=== PATIENT | male | born 1950 | race Caucasian/White ===

== ENCOUNTER → 2017-10-03 | Outpatient (CLI) | payer OTHER ==
[~2017-10-03] MED LIST: CRUTCH3 USE; CYCL10 PO; ETAN50I SC; HYDACE5 PO; INSR10I SC; INSULANI SC; METTREX2.5 PO; ONDA4ODT MM; OXAP600 PO; RXONDA4ODT MM; TRAM50 PO; [UNRECOGNIZED DRUG - OTHER]
[2017-10-03 14:11] LABS: BASOPHILS ABSOLUTE AUTO 0.06 K/mm3 (0.00-0.23); BASOPHILS PERCENT AUTO 1 % (0-2); EOSINOPHILS ABSOLUTE AUTO 0.04 K/mm3 (0.00-0.68); EOSINOPHILS PERCENT AUTO 0 % (0-6); Hematocrit 50.6 % (37.0-53.0); Hemoglobin 18.2 g/dL (13.5-17.5); IMMATURE GRAN ABSOLUTE AUTO 0.04 K/mm3 (0.00-0.10); IMMATURE GRAN PERCENT AUTO 0 % (0-1); LYMPHOCYTES ABSOLUTE AUTO 0.85 K/mm3 (0.84-5.20); LYMPHOCYTES PERCENT AUTO 8 % (21-46); MONOCYTES PERCENT AUTO 7 % (4-13); Mean Corpuscular HGB 31.8 pg (26.0-34.0); Mean Corpuscular Volume 89 fL (80-100); Mean Platelet Volume 10.6 fL (9.1-12.4); NEUTROPHILS PERCENT AUTO 83 % (41-73); Platelet Count 228 K/mm3 (150-400); RDW Coefficient Variation 12.5 % (11.7-14.2); RDW Standard Deviation 40.5 fL (35.1-46.3); Red Blood Cell Count 5.72 M/mm3 (4.30-5.90); White Blood Cell Count 10.79 K/mm3 (4.00-11.30)
[2017-10-03 14:24] LABS: Albumin, Blood 4.1 g/dL (3.4-5.0); Albumin/Globulin Ratio 0.9 (0.8-1.8); Bilirubin, Total 1.4 mg/dL (0.1-1.0); Bun/Creatinine Ratio 11.9 (12.0-20.0); Calcium, Blood 9.8 mg/dL (8.5-10.1); Creatinine, Blood 2.35 mg/dL (0.60-1.20); Globulin, Blood 4.4 g/dL (2.2-4.0); Potassium, Blood 3.9 mmol/L (3.5-5.5); Total Protein, Blood 8.5 g/dL (6.4-8.2)
== END | disposition home or self-care (01) ==
LOC: LAB EV 14:07
PROVIDERS: Physician Assistant Medical
DX: R53.83 Other fatigue (principal)
CPT/HCPCS: 80053; 85025

== ENCOUNTER → 2017-10-04 | Outpatient (CLI) | payer OTHER ==
[2017-10-04 10:22] LABS: Albumin, Blood 3.7 g/dL (3.4-5.0); Albumin/Globulin Ratio 0.9 (0.8-1.8); Bilirubin, Total 1.2 mg/dL (0.1-1.0); Bun/Creatinine Ratio 13.9 (12.0-20.0); Calcium, Blood 9.3 mg/dL (8.5-10.1); Creatinine, Blood 1.66 mg/dL (0.60-1.20); Globulin, Blood 3.9 g/dL (2.2-4.0); Potassium, Blood 3.8 mmol/L (3.5-5.5); Total Protein, Blood 7.6 g/dL (6.4-8.2)
== END ==
LOC: LAB 10:05
PROVIDERS: Physician Assistant Medical
DX: R94.4 Abnormal results of kidney function studies (principal)
CPT/HCPCS: 80053

== ENCOUNTER → 2019-05-22 | Outpatient (CLI) | payer OTHER | END | disposition home or self-care (01) | LOC: LAB SHORT 14:37 → LAB 14:37 | DX: M25.561 Pain in right knee (principal); M25.469 Effusion, unspecified knee; M06.9 Rheumatoid arthritis, unspecified | CPT/HCPCS: 87070; 87075; 87205 ==

== ENCOUNTER 2019-07-26 09:28 | Day surgery (SDC) | payer OTHER ==
[~2019-07-26] VITALS: Ht 188 cm; Wt 109.0 kg
[~2019-07-26 09:28] MED LIST changes: +ACTEMRA AC162 MG/0.9 SC; +Norco 10-325 T1 EACH PO; +ZESTORETIC 20-251 EA PO
--- NOTE | 2019-07-26 18:45 | NUR ---
SHIFT SUMMARY PATIENT TOLERATING PO. STATES PAIN 5/10 WITH IV AND PO PAIN MEDS. CIRC CHECKS TO RLE WNL. PATIENT STATES LE 'NOT QUITE NORMAL,' BUT MOVES WELL. UP TO STAND AT BEDSIDE EARLIER PER PATIENT REQUEST, BORE WEIGHT WELL. VSS. AT BEDSIDE.
[2019-07-27 03:49] LABS: BASOPHILS ABSOLUTE AUTO 0.02 K/mm3 (0.00-0.23); BASOPHILS PERCENT AUTO 0 % (0-2); EOSINOPHILS ABSOLUTE AUTO 0.04 K/mm3 (0.00-0.68); EOSINOPHILS PERCENT AUTO 0 % (0-6); Hematocrit 33.3 % (37.0-53.0); Hemoglobin 10.9 g/dL (13.5-17.5); IMMATURE GRAN ABSOLUTE AUTO 0.03 K/mm3 (0.00-0.10); IMMATURE GRAN PERCENT AUTO 0 % (0-1); LYMPHOCYTES ABSOLUTE AUTO 1.05 K/mm3 (0.84-5.20); LYMPHOCYTES PERCENT AUTO 10 % (21-46); MONOCYTES ABSOLUTE AUTO 1.08 K/mm3 (0.16-1.47); MONOCYTES PERCENT AUTO 10 % (4-13); Mean Corpuscular HGB 29.7 pg (26.0-34.0); Mean Corpuscular HGB Conc 32.7 g/dL (31.5-36.5); Mean Corpuscular Volume 91 fL (80-100); Mean Platelet Volume 9.5 fL (9.1-12.4); NEUTROPHILS ABSOLUTE AUTO 8.41 K/mm3 (1.96-9.15); NEUTROPHILS PERCENT AUTO 79 % (41-73); Platelet Count 307 K/mm3 (150-400); RDW Coefficient Variation 12.5 % (11.7-14.2); RDW Standard Deviation 41.6 fL (35.1-46.3); Red Blood Cell Count 3.67 M/mm3 (4.30-5.90); White Blood Cell Count 10.63 K/mm3 (4.00-11.30)
[2019-07-27 04:04] LABS: Anion Gap 6 mmol/L (6-16); Blood Urea Nitrogen 23 mg/dL (8-24); Bun/Creatinine Ratio 20.4 (12.0-20.0); CO2, Blood 26 mmol/L (21-32); Calcium, Blood 8.7 mg/dL (8.5-10.1); Chloride, Blood 105 mmol/L (98-108); Creatinine, Blood 1.13 mg/dL (0.60-1.20); Glomerular Filtration Rate >60 (60-); Glucose, Blood 122 mg/dL (70-99); Sodium, Blood 137 mmol/L (136-145)
--- NOTE | 2019-07-27 05:04 | NUR ---
SHIFT SUMMARY: JAMES IS POD1 FOR A RIGHT TKA WITH DR. ALVAREZ. HE IS A&OX4. HE HAS COMPLAINED OF 4-5/10 PAIN IN HIS LEFT KNEE FOR WHICH HE REPORTS ORAL PAIN MEDICATION HAS BEEN EFFECTIVE. HE REPORTS THAT SENSATION IS INTACT IN HIS RIGHT LEG. HE IS URINATING WITHOUT DIFFICULTY AND TOLERATING PO INTAKE WELL. NANCY, POLAR CELI AND PAS IN PLACE. IV PATENT TO RIGHT FOREARM, SALINE LOCKED. HE HAS RESTED INTERMITTENTLY FOR THE LAST HALF OF THE SHIFT. HE IS ABLE TO MAKE HIS NEEDS KNOWN. HE IS LYING IN BED WITH HIS CALL LIGHT IN REACH.
--- NOTE | 2019-07-27 08:55 | NUR ---
PT WORKING WITH THERAPY.
[2019-07-27] MEDS ORDERED: OXYC5 PO (14:01)
[2019-07-27] MEDS ORDERED: ACET500 PO (14:08)
--- NOTE | 2019-07-27 14:32 | NUR ---
THERAPY HERE TO WORK WITH PT.
--- NOTE | 2019-07-27 15:00 | NUR ---
DR SNYDER BEEN TO SEE PT EARLIER. PT CLEARED BY THERAPY TO GO HOME. PT VOIDING. PAIN CONTROLLED ON PO PAIN MEDICATION. PT FAMILY REPORTS HAVING APPR EQUIP AT HOME INCLUDING WALKER. PT TO BE SENT WITH ICE MACHINE AND DRESSING SUPPLIES.
--- NOTE | 2019-07-27 16:03 | NUR ---
DISCHARGE: PT EATING AND DRINKING. PASSING GAS, VOIDING. PT CLEARED BY THERAPY TO GO HOME. PT SEEN BY DR SNYDER WHO REPORTS MAY CONT WITH DISCHARGE TODAY. PT FAMILY REPORTS HAVING WALKER AT HOME. PT/FAMILY REPORTS UNDERSTANDING OF DISCHARGE INSTRUCTIONS INCLUDING DRESSING CHANGE AND ICE MACHINE. PT SENT WITH BELONGINGS, ICE MACHINE, SCRIPT AND OTHER PAPERWORK. PT ASSISTED TO CAR BY W/C WITH GIVING PT RIDE HOME.
--- NOTE | 2019-07-29 08:00 | NUR ---
07/29/19 0800 Eryn Ayers VERIFICATIONS: EDIT CHART.
== END 2019-07-27 16:06 | disposition home or self-care (01) ==
LOC: ORSCMMR 09:28 → ORD 11:30 → ORSCMMR 11:30 → SURS 15:12 → ORSCMMR 07-27 16:06
PROVIDERS: Orthopaedic Surgery
PROC: 0SRC0J9 Replacement of Right Knee Joint with Synthetic Substitute, Cemented, Open Approach (ICD-10-PCS; principal; 2019-07-26 11:30)
DX: M17.11 Unilateral primary osteoarthritis, right knee (principal); I10 Essential (primary) hypertension; Z79.899 Other long term (current) drug therapy
CPT/HCPCS: 36415; 73560-RT; 80048; 83735; 85025; 87071; 87075; 87205; 88300; 97110; 97116; 97162; 97530; C1713; C1776; J0171; J0690; J0735; J1100; J1170; J1885; J2250; J2405; J2704; J2795; J3010; J7120

== ENCOUNTER 2021-11-20 12:50 | Inpatient (IN) | payer OTHER ==
[~2021-11-20] VITALS: Ht 195.6 cm; Wt 85.0 kg
[~2021-11-20 12:50] MED LIST changes: +ACET500 PO; +OXYC5 PO
[2021-11-20 13:25] LABS: Calcium, Ionized (POC) 1.02 mmol/L (1.10-1.46); Chloride (POC) 99 mmol/L (98-108); Creatinine (POC) 4.9 mg/dL (0.8-1.3); Glucose (ISTAT POC) 99 mg/dL (70-99); Hemoglobin (POC) 14.3 g/dL (13.5-17.5); Potassium (POC) 5.4 mmol/L (3.5-5.5); Sodium (POC) 131 mmol/L (135-148); Total CO2 (POC) 19 mmol/L (21-32)
[2021-11-20 13:31] LABS: Hematocrit 40.6 % (37.0-53.0); Hemoglobin 13.2 g/dL (13.5-17.5); Mean Corpuscular HGB 26.8 pg (26.0-34.0); Mean Corpuscular HGB Conc 32.5 g/dL (31.5-36.5); Mean Corpuscular Volume 83 fL (80-100); Mean Platelet Volume 10.2 fL (9.1-12.4); Platelet Count 262 K/mm3 (150-400); RDW Coefficient Variation 14.6 % (11.7-14.2); RDW Standard Deviation 43.8 fL (35.1-46.3); Red Blood Cell Count 4.92 M/mm3 (4.30-5.90); White Blood Cell Count 16.02 K/mm3 (4.00-11.30)
[2021-11-20 13:45] LABS: Base Excess Venous -7.1 mmol/L; Bicarbonate Venous 19.5 mmol/L (24.0-30.0); International Normalized Ratio 1.23; PCO2 Venous 32.8 mmHg (38-42); PO2 Venous 141 mmHg (38-42); Prothrombin Time Results 12.7 Sec (9.7-11.5); pH Blood Venous 7.36 (7.34-7.37)
[2021-11-20 13:52] LABS: BAND PERCENT MAN 6 % (0-8); BASOPHILS PERCENT MAN 0 % (0-2); EOSINOPHILS PERCENT MAN 0 % (0-6); LYMPHOCYTES ABSOLUTE MAN 0.16 K/mm3 (0.84-5.20); LYMPHOCYTES PERCENT MAN 1 % (21-46); METAMYELOCYTE ABSOLUTE MAN 0.16 K/mm3 (0.00-0.00); METAMYELOCYTE PERCENT MAN 1 % (0-0); MONOCYTES ABSOLUTE MAN 0.64 K/mm3 (0.16-1.47); MONOCYTES PERCENT MAN 4 % (4-13); NEUTROPHILS ABSOLUTE MAN 15.05 K/mm3 (1.96-9.15); SEG NEUTROPHILS PERCENT MAN 88 % (41-73); TOTAL CELLS COUNTED 100
[2021-11-20 14:03] LABS: Albumin, Blood 1.3 g/dL (3.4-5.0); Albumin/Globulin Ratio 0.2 (0.8-1.8); Bilirubin, Total 1.5 mg/dL (0.1-1.0); Bun/Creatinine Ratio 35.6 (12.0-20.0); Calcium, Blood 8.7 mg/dL (8.5-10.1); Creatinine, Blood 4.16 mg/dL (0.60-1.20); Globulin, Blood 5.4 g/dL (2.2-4.0); Potassium, Blood 5.9 mmol/L (3.5-5.5); Thyroid Stimulating Hormone 1.6 uIU/mL (0.360-4.800); Total Protein, Blood 6.7 g/dL (6.4-8.2)
[2021-11-20 14:24] LABS: Source, Urine Foley catheter
[2021-11-20 14:29] LABS: Appearance, Urine Cloudy (Clear); Bilirubin, Urine Neg (Neg); Blood, Urine 5+ (Neg); Color, Urine Brown (P-Yellow); Glucose Qualitative, Urine Neg (Neg); Ketones, Urine Neg (Neg); Leukocyte Esterase, Urine 3+ (Neg); Nitrite, Urine Neg (Neg); Protein, Urine 2+ (Neg); Specific Gravity, Urine 1.005 (1.003-1.022); Urobilinogen, Urine 1+ (Normal)
[2021-11-20 14:36] LABS: White Blood Cells, Urine TNTC /hpf (0-5)
[2021-11-20 14:38] LABS: Bacteria Many /hpf; Red Blood Cells, Urine TNTC /hpf (0-2); Squamous Epithelial Cells Not Seen /hpf (Few)
[2021-11-20] MEDS ORDERED: Norco 10-325 T1 EACH PO (17:19)
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
[2021-11-21 04:28] LABS: Hematocrit 33.2 % (37.0-53.0); Hemoglobin 10.7 g/dL (13.5-17.5); Mean Corpuscular HGB 26.7 pg (26.0-34.0); Mean Corpuscular HGB Conc 32.2 g/dL (31.5-36.5); Mean Corpuscular Volume 83 fL (80-100); Mean Platelet Volume 10.3 fL (9.1-12.4); Platelet Count 212 K/mm3 (150-400); RDW Coefficient Variation 14.7 % (11.7-14.2); RDW Standard Deviation 44.6 fL (35.1-46.3); Red Blood Cell Count 4.01 M/mm3 (4.30-5.90); White Blood Cell Count 10.78 K/mm3 (4.00-11.30)
[2021-11-21 05:11] LABS: Alanine Aminotransfer (ALT/SGP 10 U/L (12-78); Albumin, Blood 1.1 g/dL (3.4-5.0); Albumin/Globulin Ratio 0.3 (0.8-1.8); Alk Phos 110 U/L (50-136); Anion Gap 9 mmol/L (6-16); Aspartate Aminotrans (AST/SGOT 23 U/L (12-37); Bilirubin, Total 1.1 mg/dL (0.1-1.0); Blood Urea Nitrogen 138 mg/dL (8-24); Bun/Creatinine Ratio 43.8 (12.0-20.0); CO2, Blood 21 mmol/L (21-32); Calcium, Blood 8.2 mg/dL (8.5-10.1); Chloride, Blood 108 mmol/L (98-108); Creatinine, Blood 3.15 mg/dL (0.60-1.20); Globulin, Blood 4.3 g/dL (2.2-4.0); Glomerular Filtration Rate 20 (60-); Glucose, Blood 100 mg/dL (70-99); Magnesium, Blood 2.4 mg/dL (1.6-2.4); Potassium, Blood 4.5 mmol/L (3.5-5.5); Sodium, Blood 138 mmol/L (136-145); Total Protein, Blood 5.4 g/dL (6.4-8.2)
[2021-11-21 05:18] LABS: C-REACTIVE PROTEIN, EXT RANGE >19.000 mg/dL (0.000-0.300)
--- NOTE | 2021-11-21 06:21 | NUR ---
SHIFT SUMMARY ASSUMED CARE OF PT AT 1900. PT IS A/OX3 WITH TIMES OF CONFUSION. HEART SOUNDS REGULAR. LUNG SOUNDS HAVE DIMINISHED. PT HAS A WET COUGH, NON PRODUCTIVE. PT URINE IS DARK TEA COLORED. PT HAS VARIES WOUNDS ALL OVER. DRESSINGS C/D/I. PT IS VERY PAINFUL. HOSPITALIST WAS CALLED AND IV PAIN MEDICATIONS ORDRED. PT WAS ABLE TO SLEEP AND STOPPED CRYING OUT AFTER THIS. PT IS MORE SOLULENT THIS AM BUT STILL RESPONSIVE. BLOOD CULTURES CAME BACK POSITIVE, MULTIPLE ATTEMPTS TO CALL HOSPITALIST WERE MADE. PHARMACIST STATED THAT PT MIGHT NEED VANCO AND THE DAYSHIFT DOCTORS WILL BE ABLE TO ORDER IT.
--- NOTE | 2021-11-21 16:45 | NUR ---
SHIFT SUMMARY Pt is a/o to himself today. He is more fatigued and seems more confused. He is still very painful with any movement or even the anticipation of movement. Dr Orourke increased the fentanyl patch as reflected on the emar and it does seem to be effective. He completed the amio gtt and was changed to PO this afternoon per Dr Orourke. He is in NSR in the 80's. He is pale and weak and needs at least 2 people to turn and reposition him. He had another bed bath today. His peterson is patent with dark tea colored urine. The has been at the bedside this afternoon. Palliative care was notified of the consult that was placed for him. His dressings were changed and his wounds are unchanged from yesterday. He is floated on pillows. He has his call light in reach and bed alarm on for safety.
--- NOTE | 2021-11-21 21:40 | NUR ---
PT SLEEPING, WAKES TO MOVEMENT. PT CRYING OUT STATING IT IS PAINFUL TO MOVE, ATTEMPTED TO REASURE. PT REPOSITIONED OFF OF BACK. PT WILLING TO TAKE EVENING MEDICATIONS WHOLE IN APPLESAUCE. PT CONVERED TO A-FIB AFTER MOVEMENT, HR IN 140-150'S. DR. ALEX GIANG INFORMED. ORDER RECEIVED FOR PO METROPROLOL. INSTRUCTED TO CALL AGAIN IF HR DOES NOT DECREASE.
--- NOTE | 2021-11-22 01:15 | NUR ---
PT BP DECREASED INTO 80'S SYSTOLICALLY AFTER METOPROLOL. DR. JOHNSON INFORMED, RECEIVED ORDER FOR 500 ML BOLUS. BOLUS GIVEN, SBP DECREASED FURTHER TO 79. MIDRODINE PO GIVEN PER ORDERS AND ALBUMIN IV STARTED. DR. CASTRO INFROMED OF PT'S BP AFTER FIRST BOLUS. RECEIVED ORDERS FOR SECOND 500 ML BOLUS. BOLUS HANDING AFTER SECOND IV STARTED BY RODNEY CHARGE NURSE. WILL CONTINUE TO MONITOR.
[2021-11-22 04:08] LABS: Hematocrit 28.5 % (37.0-53.0); Hemoglobin 9.3 g/dL (13.5-17.5); Mean Corpuscular HGB 27.3 pg (26.0-34.0); Mean Corpuscular HGB Conc 32.6 g/dL (31.5-36.5); Mean Corpuscular Volume 84 fL (80-100); Mean Platelet Volume 9.9 fL (9.1-12.4); Platelet Count 165 K/mm3 (150-400); RDW Standard Deviation 45.9 fL (35.1-46.3); Red Blood Cell Count 3.41 M/mm3 (4.30-5.90); White Blood Cell Count 7.93 K/mm3 (4.00-11.30)
[2021-11-22 04:32] LABS: Alanine Aminotransfer (ALT/SGP 9 U/L (12-78); Albumin, Blood 1.5 g/dL (3.4-5.0); Albumin/Globulin Ratio 0.4 (0.8-1.8); Alk Phos 87 U/L (50-136); Anion Gap 7 mmol/L (6-16); Aspartate Aminotrans (AST/SGOT 20 U/L (12-37); Bilirubin, Total 0.9 mg/dL (0.1-1.0); Blood Urea Nitrogen 108 mg/dL (8-24); Bun/Creatinine Ratio 50.5 (12.0-20.0); CO2, Blood 21 mmol/L (21-32); Chloride, Blood 118 mmol/L (98-108); Creatinine, Blood 2.14 mg/dL (0.60-1.20); Globulin, Blood 3.7 g/dL (2.2-4.0); Glomerular Filtration Rate 31 (60-); Glucose, Blood 96 mg/dL (70-99); Potassium, Blood 3.9 mmol/L (3.5-5.5); Sodium, Blood 146 mmol/L (136-145); Total Protein, Blood 5.2 g/dL (6.4-8.2); Vancomycin, Random 14.4 ug/mL
--- NOTE | 2021-11-22 06:56 | NUR ---
AFTER AMNIODERONE DRIP STARTED PT'S HR DECREASED SLIGHTLY INTO 120'S-130'S. BP REMAINS SOFT WITH MAP >65. THIS A.M. HR INCREASED BACK TO 140'S, MAP < 60. DR. ENCISO INFROMED. ORDERS RECEIVED FOR BOLUS OF AMNIODERONE. MEDICATION PENDING ARRIVAL FROM PHARMACY.
--- NOTE | 2021-11-22 08:39 | NUR ---
AMNIO DECREASED TO 16.7ML/HR PER PROTOCOL AT 0800.
--- NOTE | 2021-11-22 14:58 | NUR ---
Patient is lying in bed and alert. Patient speaks but in short sentences and has a standard "I don't know" answer to many of the questions. Bairon also states, "I can't pull up my thoughts." This is clearly bothersome to the patient. He was very clear in stating that he would like a prayer said for him, which I gladly provided. I also provided a calming presence and gentle supportive licensed mental health counselor. Pt responds well and shows signs of being encouraged and having an increase in hope. I will continue to remain available to patient and family.
--- NOTE | 2021-11-22 17:54 | NUR ---
CARE TODAY PROVIDED BY STUDENT NURSE MARTINA HARLEY REVIEWED BY THIS RN.
--- NOTE | 2021-11-22 18:49 | NUR ---
SHIFT SUMMARY; ASSUMED CARE AT 0700. SLEEPING BUT AWAKES TO VERBAL STIMULI. ANSWERS MINIMAL QUESTIONS DURING FIRST PART OF SHIFT, APPEARS LETHARGIC, EXTREMTIES WEAK X4. MULTIPLE PRESSURE ULCERS. MEPILEX IN PLACE ON COCCYX, BILATERAL ARMS AND LEGS. PHOTOS IN CHART. EVALUATED BY SPEECH TODAY, ASSISTED WITH MEALS. MORE ALERT IN AFTERNOON, FAMILY AT BEDSIDE. MOANS IN PAIN WITH ANY TOUCH. REPOSITIONED Q2 DURING SHIFT WITH MAX ASSIST. PAIN CONTROL VIA EMAR. BAZZI IN PLACE DRAINING TEA COLORED URINE. HEART RATE 130'S DURING SHIFT IN AFIB. DIGOXIN GIVEN PER ORDERS, DISCUSSED CONTINUED HIGH HEART RATE VIA TELEPHONE CALL TO DR. MCDOWELL IN AFTERNOON. VERBAL ORDER FOR REPEAT DOSE OF DIG IV. BLOOD PRESSURE STABLE DURING SHIFT. WILL CONTINUE TO MONITOR AND TREAT UNTIL CHANGE OF SHIFT.
--- NOTE | 2021-11-22 19:06 | NUR ---
PT WAS HARD TO AROUSE THIS MORNING, HE MUMBLED IN PAIN AND WAS NOT ALERT AND ORIENTED. HE IS ON NS AND AN AMIODARONE DRIP, HR SUSTAINED IN THE 130-140. DOCTOR WAS CALLED AND DIGOXIN IV WAS STARTED IN THE EVENING. HE BEGAN TO WAKE UP AROUND LUNCH AND HAS BEEN A&OX4. SPEECH PUT HIM ON PUREE DIET AND THIN LIQUIDS. PAIN PERSISTS WITH FENTANYL IV, TAKES MULTIPLE PEOPLE TO REPOSITION. FAMILY IS WORKING WITH PALLIATIVE TO FIND A PLAN MOVING FORWARD.
[2021-11-23 03:58] LABS: Hematocrit 29.9 % (37.0-53.0); Hemoglobin 9.6 g/dL (13.5-17.5); Mean Corpuscular HGB 26.9 pg (26.0-34.0); Mean Corpuscular HGB Conc 32.1 g/dL (31.5-36.5); Mean Corpuscular Volume 84 fL (80-100); Mean Platelet Volume 9.9 fL (9.1-12.4); Platelet Count 166 K/mm3 (150-400); RDW Standard Deviation 46.3 fL (35.1-46.3); Red Blood Cell Count 3.57 M/mm3 (4.30-5.90); White Blood Cell Count 9.35 K/mm3 (4.00-11.30)
--- NOTE | 2021-11-23 04:10 | NUR ---
AFIB TO SR PT CONVERTED FROM AFIB TO NSR AT APPROX 0345. HR 90'S
[2021-11-23 04:19] LABS: Alanine Aminotransfer (ALT/SGP 9 U/L (12-78); Albumin, Blood 1.5 g/dL (3.4-5.0); Albumin/Globulin Ratio 0.4 (0.8-1.8); Alk Phos 82 U/L (50-136); Anion Gap 7 mmol/L (6-16); Aspartate Aminotrans (AST/SGOT 35 U/L (12-37); Bilirubin, Total 1.1 mg/dL (0.1-1.0); Blood Urea Nitrogen 77 mg/dL (8-24); Bun/Creatinine Ratio 49.7 (12.0-20.0); CO2, Blood 20 mmol/L (21-32); Calcium, Blood 8.2 mg/dL (8.5-10.1); Chloride, Blood 119 mmol/L (98-108); Creatinine, Blood 1.55 mg/dL (0.60-1.20); Globulin, Blood 3.9 g/dL (2.2-4.0); Glomerular Filtration Rate 45 (60-); Glucose, Blood 137 mg/dL (70-99); Magnesium, Blood 1.9 mg/dL (1.6-2.4); Potassium, Blood 3.7 mmol/L (3.5-5.5); Sodium, Blood 146 mmol/L (136-145); Total Protein, Blood 5.4 g/dL (6.4-8.2)
--- NOTE | 2021-11-23 06:43 | NUR ---
SHIFT SUMMARY PT ALERT, ORIENTED AT START OF SHIFT. AT END OF SHIFT, PT BEGAN MAKING COMMENTS SUCH , "WHY IS THIS LITTLE BOY BY MY BED" AND "CAN YOU TAKE OFF HER SHOE?" WHEN ASKED WHOSE SHOE, PT REPLIED, "MY DAUGHTERS". STATED HIS DAUGHTER, MARICRUZ WAS AGE 5 OR 6. SP02>92% ON 2L NC. TELEMETRY SHOWED AFIB, HR 130'S AVG. BEGAN TO INCREASE TO 140'S-150'S, CALL PLACED TO MD GUALLPA. MD GUALLPA WITH ORDERS FOR 1X IV LOPRESSOR PUSH. HR BEGAN TO DECREASE, THEN PT CONVERTED TO NSR AT AROUND 0345. AMIO GTT OFF THIS SHIFT. BAZZI CATHETER DRAINING TO GRAVITY. NO BM THIS SHIFT. PT REPOSITIONED TWICE THIS SHIFT, DID NOT ALLOW OTHER TIMES. IV PAIN MEDICATION GIVEN PER EMAR. NS INFUSED PER EMAR. CALL LIGHT IN REACH.
--- NOTE | 2021-11-23 18:23 | NUR ---
ASSUMED CARE OF PT AT 0700 FROM KAELYN L[place]ON. SEE SHIFT ASSESSMENT. SPEECH THERAPY IN TO SEE PT TODAY AND UPDATE FEEDING PLAN. [employer] DEVELOPER CONSULTED AND ASSESSED THE PT'S WOUNDS, ORDERS PLACED FOR SURGICAL CONSULT FOR POSSIBLE DEBRIDEMENT OF SEVERAL WOUNDS. PT'S AT BEDSIDE MOST OF THE DAY. BED BATH PROVIDED ALONG WITH WOUND CARE. PT TO IMAGAING FOR HEAD CT R/T MENATION CHANGES, SEE RESULTS IN CHART. PT APPEARS TO BE RESTING COMFORTABLY AT THIS TIME, EYES CLOSED, RESPIRATIONS EVEN AND UNLABORED. WILL CONTINUE TO MONITOR AND GIVE REPORT TO NOC SHIFT RN.
--- NOTE | 2021-11-24 06:15 | NUR ---
SHIFT SUMMARY PT ALERT, HALLUCINATING. PT STATES, "HELP, A SNAKE BIT MY LEFT FOOT". PT STATES, "PLEASE TAKE FRANCIE SO I CAN SLEEP". SEE SHIFT ASSESSMENT. BAZZI CATHETER DRAINING SEDIMENT DARK URINE TO GRAVITY. NO BM THIS SHIFT. PAIN MEDICATION GIVEN PER MAR FOR UNCONTROLLED GENERALIZED RA PAIN. CALL LIGHT IN REACH .
[2021-11-24 07:38] LABS: Hemoglobin 8.8 g/dL (13.5-17.5); Mean Corpuscular HGB 27.1 pg (26.0-34.0); Mean Corpuscular HGB Conc 31.4 g/dL (31.5-36.5); Mean Corpuscular Volume 86 fL (80-100); Mean Platelet Volume 9.9 fL (9.1-12.4); Platelet Count 132 K/mm3 (150-400); RDW Coefficient Variation 15.1 % (11.7-14.2); RDW Standard Deviation 47.8 fL (35.1-46.3); Red Blood Cell Count 3.25 M/mm3 (4.30-5.90); White Blood Cell Count 9.47 K/mm3 (4.00-11.30)
[2021-11-24 08:01] LABS: Alanine Aminotransfer (ALT/SGP 15 U/L (12-78); Albumin, Blood 1.4 g/dL (3.4-5.0); Albumin/Globulin Ratio 0.4 (0.8-1.8); Alk Phos 73 U/L (50-136); Anion Gap 4 mmol/L (6-16); Aspartate Aminotrans (AST/SGOT 37 U/L (12-37); Bilirubin, Total 0.8 mg/dL (0.1-1.0); Blood Urea Nitrogen 61 mg/dL (8-24); Bun/Creatinine Ratio 43.3 (12.0-20.0); CO2, Blood 21 mmol/L (21-32); Calcium, Blood 7.9 mg/dL (8.5-10.1); Chloride, Blood 118 mmol/L (98-108); Creatinine, Blood 1.41 mg/dL (0.60-1.20); Globulin, Blood 3.7 g/dL (2.2-4.0); Glomerular Filtration Rate 50 (60-); Glucose, Blood 101 mg/dL (70-99); Magnesium, Blood 1.7 mg/dL (1.6-2.4); Sodium, Blood 143 mmol/L (136-145); Total Protein, Blood 5.1 g/dL (6.4-8.2); Vancomycin, Random 18.2 ug/mL
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
--- NOTE | 2021-11-24 12:28 | NUR ---
PT IS SLEEPING SOUNDLY WITH FAMILY ALSO SLEEPING AT BEDSDE, EVEN CHEST RISE AND FALL NOTED.
--- NOTE | 2021-11-24 17:10 | NUR ---
SHIFT NOTE PT HAS SLEPT T/O MOST OF THE DAY AFTER BEING MEDICATED FOR PAIN AND REPOSITIONED THIS AM. PT REPOSITIONED T/O THE DAY WHICH WAS TOELRATED WELL. VSS. PT WITH VERY LITTLE ROM TO ARMS AND LEGS, SHOUTS WHEN TOUCHED, OR PERCIEVES THAT HE IS BEING TOUCHED. PT REPORTS A MINIMUM OF 7/10 PAIN AT ALL TIMES WHEN AWAKE DESPITE BEING VERY CALM AND RELAXED IN BED WHEN PAIN IS ASSESSED. NO OTHER ACUTE CHANGES SINCE LAST NOTE TO DISCUSS
[2021-11-25 05:09] LABS: Hematocrit 28.9 % (37.0-53.0); Mean Corpuscular HGB 26.3 pg (26.0-34.0); Mean Corpuscular HGB Conc 31.1 g/dL (31.5-36.5); Mean Corpuscular Volume 85 fL (80-100); Mean Platelet Volume 10.7 fL (9.1-12.4); Platelet Count 145 K/mm3 (150-400); RDW Coefficient Variation 15.1 % (11.7-14.2); RDW Standard Deviation 46.6 fL (35.1-46.3); Red Blood Cell Count 3.42 M/mm3 (4.30-5.90); White Blood Cell Count 13.31 K/mm3 (4.00-11.30)
--- NOTE | 2021-11-25 06:17 | NUR ---
SHIFT SUMMARY NO ACUTE CHANGES. PT AWAKE MOST NIGHT. CALLING OUT, "HELLO" OFTEN AND REPEATELY. WHEN ASKED WHAT HE NEEDS, PT STATES, "I NEED TO GET TO MY HOUSE" WHEN TOLD HE IS IN THE HOSPITAL PT STATES, "NO, I DONT FEEL IM AT [facility]". VSS, SEE SHIFT ASSESSMENT. PT ATE ICE CREAM AND DRANK SEVERAL GLASSES OF WATER. NO BM THIS SHIFT. REPOSITIONED T/O NIGHT, THOUGH EXTREMELY PAINFUL TO REPOSITION. MEDICATED PER EMAR. CALL LIGHT IN REACH.
[2021-11-25 07:35] LABS: Anion Gap 9 mmol/L (6-16); Blood Urea Nitrogen 54 mg/dL (8-24); Bun/Creatinine Ratio 42.2 (12.0-20.0); CO2, Blood 19 mmol/L (21-32); Calcium, Blood 8.2 mg/dL (8.5-10.1); Chloride, Blood 113 mmol/L (98-108); Creatinine, Blood 1.28 mg/dL (0.60-1.20); Glomerular Filtration Rate 56 (60-); Glucose, Blood 99 mg/dL (70-99); Potassium, Blood 4.5 mmol/L (3.5-5.5); Sodium, Blood 141 mmol/L (136-145); Vancomycin, Random 20.2 ug/mL
--- NOTE | 2021-11-25 11:05 | NUR ---
Spiritual care visit conducted. I talked with pt's spouse, Stan, in the hallway, outside of pt's rm. She talks about pt's sudden decline that happened while she was in the hospital and about the stress it causes her to see him suffering. She states that she hopes that if he is just in a slow painful way out that he would "go quickly" rather be hurting so badly. She also talks about which is better; a SNF or home on hospice. I mention the importance of his best interest and the highest quality of care he would receive. She asks for prayer which I gladly supply. I listen empathically and provide gentle dormitory counselor. SHe responds well and shows signs of increased peace.
--- NOTE | 2021-11-25 12:10 | NUR ---
PT ARRIVED TO ROOM 347 FROM PCU 4 VIA BED AND REMAINED IN THAT BED. HE WAS ACCOMPANINED BY HIS SPOUSE, ORIENTED TO ROOM, PHONES AND CALL SYSTEM. IVF INFUSING TO DAV Monterroso, WILL CONTINUE TO MONITOR.
--- NOTE | 2021-11-25 18:38 | NUR ---
NO ACUTE CHANGES NOTED SINCE ARRIVAL TO ROOM 347. WILL CONTINUE TO MONITOR AND REPORT TO ONCOMING RN
[2021-11-25 20:09] LABS: Vancomycin, Trough 15.9 ug/mL (5.0-10.0)
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
[2021-11-26 05:22] LABS: Hematocrit 26.7 % (37.0-53.0); Hemoglobin 8.7 g/dL (13.5-17.5); Mean Corpuscular HGB 27.4 pg (26.0-34.0); Mean Corpuscular HGB Conc 32.6 g/dL (31.5-36.5); Mean Corpuscular Volume 84 fL (80-100); Mean Platelet Volume 10.2 fL (9.1-12.4); Platelet Count 133 K/mm3 (150-400); RDW Coefficient Variation 14.7 % (11.7-14.2); RDW Standard Deviation 45.4 fL (35.1-46.3); Red Blood Cell Count 3.17 M/mm3 (4.30-5.90)
[2021-11-26 07:13] LABS: Albumin, Blood 1.2 g/dL (3.4-5.0); Albumin/Globulin Ratio 0.3 (0.8-1.8); Bilirubin, Total 0.6 mg/dL (0.1-1.0); Bun/Creatinine Ratio 40.6 (12.0-20.0); Calcium, Blood 7.8 mg/dL (8.5-10.1); Creatinine, Blood 1.28 mg/dL (0.60-1.20); Globulin, Blood 4.1 g/dL (2.2-4.0); Potassium, Blood 4.1 mmol/L (3.5-5.5); Total Protein, Blood 5.3 g/dL (6.4-8.2)
--- NOTE | 2021-11-26 12:30 | NUR ---
PT SLEEPING BUT AROUSABLE, WILL MUMBLE BUT IS NOT TAKING PO MEDS OR MEALS.
--- NOTE | 2021-11-26 13:05 | NUR ---
PT AROUSES TO SAY "LEAVE ME ALONE" , REFUSING MEALS AND PO MEDS. REFUSING PO CORDARONE AND METOPROLOL, DR MCDOWELL INFORMED, PER DR MCDOWELL HOLD CORDARONE AND METOPROLOL FOR NOW. NEW ORDERS FOR IV MEDS TO FOLLOW PER DR MCDOWELL
--- NOTE | 2021-11-26 17:29 | NUR ---
Assist in patient care with wound care and positioning. Pt joints frozen and swollen and tolerance of movement in minimal. PT dries out and respirations increase. Review of labs and assessemnt pt kps score is 30%. at bedside distraught at decline and his pain. Mostly theraputic visit. Briefly and carefully discussed if he declines further she needs to talk with her children. Theraputic touch and talk with pt about his suffering. He has been making straong statements relayed by his of not tolerating his life due to the suffering. He was actually able to watch a little tv after the fentanly and toradol. Suggest hospice care and hopefully buy him some quality time. Pt high risk readmissiona nd repeat infections.
--- NOTE | 2021-11-27 04:55 | NUR ---
Shift summary Patient alert to self, TODD wounds d/t intact dressings in place, turned as ordered. Patient in pain aggravated by turning and medicated per MAR. BP monitored closely and stable. Generalized edema noted.
[2021-11-27 05:53] LABS: Hematocrit 23.8 % (37.0-53.0); Hemoglobin 7.6 g/dL (13.5-17.5); Mean Corpuscular HGB 27.3 pg (26.0-34.0); Mean Corpuscular HGB Conc 31.9 g/dL (31.5-36.5); Mean Corpuscular Volume 86 fL (80-100); Mean Platelet Volume 10.7 fL (9.1-12.4); Platelet Count 111 K/mm3 (150-400); RDW Coefficient Variation 15.1 % (11.7-14.2); RDW Standard Deviation 46.4 fL (35.1-46.3); Red Blood Cell Count 2.78 M/mm3 (4.30-5.90); White Blood Cell Count 11.29 K/mm3 (4.00-11.30)
[2021-11-27 06:20] LABS: Albumin, Blood 1.4 g/dL (3.4-5.0); Albumin/Globulin Ratio 0.4 (0.8-1.8); Bilirubin, Total 0.6 mg/dL (0.1-1.0); Bun/Creatinine Ratio 35.2 (12.0-20.0); Calcium, Blood 7.8 mg/dL (8.5-10.1); Creatinine, Blood 1.82 mg/dL (0.60-1.20); Globulin, Blood 3.5 g/dL (2.2-4.0); Potassium, Blood 4.3 mmol/L (3.5-5.5); Total Protein, Blood 4.9 g/dL (6.4-8.2)
[2021-11-27 15:24] LABS: Percent Saturation 18.6 % (20.0-50.0)
--- NOTE | 2021-11-27 16:40 | NUR ---
SHIFT SUMMARY PATIENT MEDICATED FOR PAIN X1. PATIENT DENIES NAUSEA AND SHORTNESS OF BREATH. PATIENT IS BEDBOUND. PATIENT HAS POOR PO INTAKE, REFUSING FOOD. PATIENT IS ALSO REFUSING ALL PO MEDICATIONS. DR. MCDOWELL NOTIFIED. NEW ORDERS. DR. SCOTT CONSULTED. NEW ORDERS FOR XRAY OF BOTH NEEDS AND ASPIRATION OF FLUID FROM KNEES ALONG WITH CULTURES AND CELL COUNT OF FLUID. PATIENT VISITED ALL DAY. DRESSING CHANGE OF COCCYX AND BILAT LOWER EXTREMITY WOUNDS. BAZZI IS PATENT AND DRAINING. PATIENT IS PLEASANT AND COOPERATIVE WITH CARE.
--- NOTE | 2021-11-28 03:57 | NUR ---
At start of shift patient noted to be lethargic but arousable. High response to pain as when patient simply touched he would yell loudly and moan. Patient with multiple wounds and needing to be repositioned. Patient medicated per MAR then turned. at bedside and in agreement with patient needing to be turned and stating that during the day he had tolerated turning with the new pain medication given. At this time this RN and another RN spoke with patient regarding patient status and stating that she was wanting to take the patient home with hospice however due to the patient severe pain and declining condition position she was interested in comfort care. informed that we would endorse in report so that care management and MD could discuss with patient in the AM. Patient also with a fever, medicated per OCT and ice therapy applied. Patient closely monitored. Around midnight patinet medicated per MAR prior to turning. At this time patient more alert, talking and stating he felt better. Patient medicated then turned. Patient unable to take P.O. meds due to not wanting to swallow. This unchanged from previous shift as endorsed in repor that patient refused P.O. medications.
--- NOTE | 2021-11-28 05:05 | NUR ---
Spiritual Care-End of life Call Back Pt. had recently passed. Spouse is present and mildly cathartic. facilitated a life review and empatheticially listened with a calming presence. Spouse asked questions about accepted end of life practices. Pt. was a man of [place] so reinforced the hope the familiy has embraced. Prayed with spouse. [facility] [place] to handle the body. Spouse will stay with pt. till daylight so she doesn't drive home in the dark.
--- NOTE | 2021-11-28 06:40 | NUR ---
Patient at 0333, verified by two RNs, on ascultation no heart sounds noted, no pulses and no breathing observed. computer applications instructor notified
== END 2021-11-28 03:33 | DRG 872 ==
LOC: ER 12:50 → MEDS 15:36 → PCU 15:36 → MEDS 11-25 12:07
PROVIDERS: Emergency Medicine; Pharmacist; ADMIT Internal Medicine
PROC: 3E03329 Introduction of Other Anti-infective into Peripheral Vein, Percutaneous Approach (ICD-10-PCS; principal; 2021-11-20)
PROC: 3E0F7SF Introduction of Other Gas into Respiratory Tract, Via Natural or Artificial Opening (ICD-10-PCS; 2021-11-20)
DX: A41.02 Sepsis due to Methicillin resistant Staphylococcus aureus (principal); N39.0 Urinary tract infection, site not specified; N17.9 Acute kidney failure, unspecified; E44.0 Moderate protein-calorie malnutrition; Z51.5 Encounter for palliative care; Z74.01 Bed confinement status; M06.9 Rheumatoid arthritis, unspecified; M25.461 Effusion, right knee; M25.462 Effusion, left knee; L89.150 Pressure ulcer of sacral region, unstageable; L89.102 Pressure ulcer of unspecified part of back, stage 2; L89.892 Pressure ulcer of other site, stage 2; I48.91 Unspecified atrial fibrillation; R65.20 Severe sepsis without septic shock; Z96.653 Presence of artificial knee joint, bilateral; Z90.5 Acquired absence of kidney; Z85.53 Personal history of malignant neoplasm of renal pelvis; Z68.21 Body mass index [BMI] 21.0-21.9, adult; Z87.442 Personal history of urinary calculi; Z90.49 Acquired absence of other specified parts of digestive tract; Z98.41 Cataract extraction status, right eye; Z98.42 Cataract extraction status, left eye; Z98.890 Other specified postprocedural states; Z79.899 Other long term (current) drug therapy
CPT/HCPCS: 36415; 51702; 70450; 71045; 73560-LT; 73560-RT; 76770; 80047; 80048; 80053; 80202; 81001; 82272; 82533; 82550; 82607; 82728; 82746; 82803; 83540; 83550; 83605; 83735; 83880; 84443; 84484; 85014; 85025; 85027; 85610; 85651; 85730; 86140; 87040; 87077; 87086; 87147; 87186; 92526; 92610; 93005; 93010; 93306; 94760; 94762; 96374; 96376; 99285-25; A9270; C1751; C9113; J0282; J0696; J0878; J1160; J1644; J1885; J1940; J3010; J3370; J7030; J7040; J7050; J7060; P9046